=== PATIENT | female | born 1935 | race Caucasian/White ===

== ENCOUNTER 2020-02-26 22:34 | Emergency (ER) | payer MEDICARE, OTHER, SELFPAY ==
[2020-02-26 22:40] VITALS: BP 149/66; PULSE 67; RESP 16; TEMP 36.3; O2SAT 99; BMI 16.9
--- NOTE | 2020-02-26 23:33 | CTR_ITS ---
PROCEDURE INFORMATION: Exam: CT Abdomen And Pelvis With Contrast Exam date and time: 02/26/2020 11:47 PM Age: 84 years old Clinical indication: Nausea; Abdominal pain; Localized; Right upper quadrant (ruq); Prior surgery; Surgery date: 6+ months; Additional info: Abd pain TECHNIQUE: Imaging protocol: Computed tomography of the abdomen and pelvis with intravenous contrast. Radiation optimization: All CT scans at this facility use at least one of these dose optimization techniques: automated exposure control; mA and/or kV adjustment per patient size (includes targeted exams where dose is matched to clinical indication); or iterative reconstruction. Contrast material: VISI; Contrast volume: 75 ml; Contrast route: INTRAVENOUS (IV); COMPARISON: No relevant prior studies available. RADIATION DOSE METRICS: Total DLP (mGy-cm): 446.71 FINDINGS: Liver: Normal. No mass. Gallbladder and bile ducts: Gallbladder appears somewhat prominent, ultrasound could further characterize this. Mild biliary dilation without obstructing lesion. Right hepatic lobe 11 mm cyst, no follow-up advised Pancreas: Normal. No ductal dilation. Spleen: Normal. No splenomegaly. Adrenals: Normal. No mass. Kidneys and ureters: Several benign left renal cysts, no follow-up advised. Stomach and bowel: Constipation. Prominent fluid in the stomach and portions of the small bowel may reflect a gastroenteritis. Appendix: No evidence of appendicitis. Intraperitoneal space: Unremarkable. No free air. No significant fluid collection. Vasculature: Unremarkable. No abdominal aortic aneurysm. Lymph nodes: Unremarkable. No enlarged lymph nodes. Bladder: Unremarkable as visualized. Reproductive: Unremarkable as visualized. Bones/joints: Several chronic appearing thoracic spine compression fractures. Soft tissues: Unremarkable. CT/CT abdomen pelvis w con* [id number] IMPRESSION: 1. Prominent fluid in the stomach and portions of the small bowel may reflect a gastroenteritis. 2. Gallbladder appears somewhat prominent, ultrasound could further characterize this. 3. Several benign left renal cysts, no follow-up advised. 4. Constipation. 5. Mild biliary dilation without obstructing lesion. 6.Right hepatic lobe 11 mm cyst, no follow-up advised Radiation Dose CTDIVOL = (mGy): DLP = 446.71 (mGy-cm)
[2020-02-26 23:36] VITALS: BP 167/85; PULSE 56; RESP 21; O2SAT 100
--- NOTE | 2020-02-26 23:37 | ED_ITS ---
HPI - Abdominal Pain General: Chief Complaint: Abdominal Pain Stated Complaint: abd pain Time Seen by Provider: 02/26/20 22:38 Source: patient Mode of arrival: ambulatory Limitations: no limitations History of Present Illness: HPI narrative: 84-year-old female had epigastric pain 4 hours ago starting after eating. States pain is been sharp in nature and is lessened slightly and is currently 6 out of 10. She had no nausea or vomiting she is had multiple abdominal surgeries in the past. MD elicited complaint: abdominal pain Pertinent past history: none Onset (ago): hour(s) Location: Epigastric Severity: moderate Quality: stabbing Radiation: none Migration to: no migration Associated Symptoms: Denies chills, dysuria and fever(s) Review of Systems Const: Denies: fever(s), chills, body aches or change in appetite Eyes: Denies: blurry vision or eye discomfort ENMT: Denies: throat pain or dental pain Card: Denies: chest pain Resp: Denies: dyspnea GI: Reports: abdominal pain : Denies: dysuria Musc: Denies: neck pain or back pain Skin/Breast: Denies: rash Neuro: Denies: headache(s) Psych: Denies: depression Artis/Lymph: Denies: easy bruising All/Imm: Denies: urticaria PFSH ED PFSH: Social History Smoking and tobacco status: never smoked Physical Exam Const: COMMON NORMALS: no acute distress, patient oriented x3 and healthy appearing HENMT: COMMON NORMALS: normocephalic and atraumatic HEAD & SCALP: normocephalic and atraumatic Eye: COMMON NORMALS: Equal, round and reactive pupils present and EOMs intact bilaterally PUPIL: Yes Equal, round and reactive pupils present Neck/C-Spine: COMMON NORMALS: full ROM and supple Chest: COMMONS NORMALS: normal inspection of the chest and normal palpation of entire chest wall Resp: COMMON NORMALS: normal respiratory effort, No retractions, No use of accessory muscles and clear to auscultation bilaterally AUSCULTATION: clear to auscultation bilaterally Cardio: COMMON NORMALS: regular rate, regular rhythm and No murmurs present (Cardio) RATE: regular rate RHYTHM: regular rhythm GI: COMMON NORMALS: Normal to inspection, nondistended, normoactive bowel sounds present, Soft to palpation and no masses PALPATION: Yes Soft to palpation OTHER: tenderness to epigastric region Extremity: COMMON NORMALS: normal to inspection and full ROM Neuro: COMMON NORMALS: patient oriented x3, moves all extremities and no focal motor deficits Psych: COMMON NORMALS: mental status grossly normal, Normal thought process present and cooperative THOUGHT PROCESS: Normal thought process present Skin: COMMON NORMALS: no rashes or lesions noted and no wounds GENERAL SKIN EXAM: no rashes or lesions noted Course Vital Signs: Vital signs: Vital Signs Temperature 97.4 F L 02/26/20 22:40 Pulse Rate 62 02/27/20 02:16 Respiratory Rate 18 02/27/20 02:16 Blood Pressure 139/77 02/27/20 02:16 Pulse Oximetry 98 02/27/20 02:16 MDM - Abdominal Pain MDM Narrative: Medical decision making narrative: 84-year-old female presents here with abdominal pain likely gastroenteritis. Patient's pain was mainly epigastric and lab work here is all normal. CT does show gastritis as well. We will place her on Zofran she is stable for discharge. She has no tenderness over her gallbladder but does have a prominent gallbladder on CT and will have her follow-up with surgeon. She has no signs of acute cholecystitis. She is return if worsening. Lab Data: Labs: Lab Results 02/26/20 02/26/20 Range/Units 23:26 23:26 WBC 5.0 (4.0-10.0) 10^3/ uL RBC 3.75 L (4.1-5.3) 10^6/u L Hgb 11.7 (11.5-15.3) g/dL Hct 35.4 L (37.0-47.0) % MCV 94.4 (81-99) fL MCH 31.2 (28.0-34.0) pg MCHC 33.1 (30.0-36.0) g/dL RDW 12.2 (12.1-15.1) % Plt Count 244 (130-400) 10^3/c mm MPV 9.5 (7.4-10.4) fL Neut % (Auto) 56.0 % Lymph % (Auto) 24.0 % Clayton % (Auto) 16.8 % Eos % (Auto) 2.0 % Baso % (Auto) 1.0 % Neut # (Auto) 2.8 (1.8-7.7) 10^3/u L Lymph # (Auto) 1.2 (0.8-4.8) 10^3/u L Clayton # (Auto) 0.8 (0.2-0.9) 10^3/u L Eos # (Auto) 0.1 (0.0-0.8) 10^3/u L Baso # (Auto) 0.1 (0.0-0.1) 10^3/u L Nucleated RBC % (a uto) 0 % Nucleated RBCs # 0.0 /100WBC Sodium 134 L (136-145) mmol/L Potassium 4.0 (3.5-5.1) mmol/L Chloride 96 L (98-107) mmol/L Carbon Dioxide 24 (22-29) mmol/L Anion Gap 18.0 (5-19) BUN 18 (8-23) mg/dL Creatinine 0.8 (0.5-0.9) mg/dL Glucose 149 H (65-115) mg/dL Calculated Osmolal ity 277 L (285-295) mOsm/k g Calcium 10.2 (8.5-10.5) mg/dL Total Bilirubin 0.3 (0.15-1.2) mg/dL AST 27 (0-32) U/L ALT 14 (0-33) U/L Alkaline Phosphata se 58 (35-105) IU/L Total Protein 7.2 (6.6-8.7) g/dL Albumin 4.4 (3.5-5.2) g/dL Globulin 2.8 (1.3-4.6) g/dL Lipase 92 H (13-60) U/L Imaging Data ^: CT Abd/Pel: Radiologist's impression: [address] [address] [address] Scan Report Signed Patient: Aniyah Knowles Unit #: [id number] : 1935 Age/Sex: 84 / F ADM Date: 02/26/20 Loc: ER Room/Bed: Attending Dr: Ordering Provider/Ordering MD: Charisse Flaherty MD Date of Service: 02/26/20 Procedure(s): CT abdomen pelvis w con* [id number] Accession Number(s): [id number] Report Number: [id number] PROCEDURE INFORMATION: Exam: CT Abdomen And Pelvis With Contrast Exam date and time: 02/26/2020 11:47 PM Age: 84 years old Clinical indication: Nausea; Abdominal pain; Localized; Right upper quadrant (ruq); Prior surgery; Surgery date: 6+ months; Additional info: Abd pain TECHNIQUE: Imaging protocol: Computed tomography of the abdomen and pelvis with intravenous contrast. Radiation optimization: All CT scans at this facility use at least one of these dose optimization techniques: automated exposure control; mA and/or kV adjustment per patient size (includes targeted exams where dose is matched to clinical indication); or iterative reconstruction. Contrast material: VISI; Contrast volume: 75 ml; Contrast route: INTRAVENOUS (IV); COMPARISON: No relevant prior studies available. RADIATION DOSE METRICS: Total DLP (mGy-cm): 446.71 FINDINGS: Liver: Normal. No mass. Gallbladder and bile ducts: Gallbladder appears somewhat prominent, ultrasound could further characterize this. Mild biliary dilation without obstructing lesion. Right hepatic lobe 11 mm cyst, no follow-up advised Pancreas: Normal. No ductal dilation. Spleen: Normal. No splenomegaly. Adrenals: Normal. No mass. Kidneys and ureters: Several benign left renal cysts, no follow-up advised. Stomach and bowel: Constipation. Prominent fluid in the stomach and portions of the small bowel may reflect a gastroenteritis. Appendix: No evidence of appendicitis. Intraperitoneal space: Unremarkable. No free air. No significant fluid collection. Vasculature: Unremarkable. No abdominal aortic aneurysm. Lymph nodes: Unremarkable. No enlarged lymph nodes. Bladder: Unremarkable as visualized. Reproductive: Unremarkable as visualized. Bones/joints: Several chronic appearing thoracic spine compression fractures. Soft tissues: Unremarkable. CT/CT abdomen pelvis w con* [id number] IMPRESSION: 1. Prominent fluid in the stomach and portions of the small bowel may reflect a gastroenteritis. 2. Gallbladder appears somewhat prominent, ultrasound could further characterize this. 3. Several benign left renal cysts, no follow-up advised. 4. Constipation. 5. Mild biliary dilation without obstructing lesion. 6.Right hepatic lobe 11 mm cyst, no follow-up advised EKG Data ^: EKG 1: Attestation: I personally reviewed and interpreted this EKG as follows: EKG interpretation date: 02/26/20 EKG interpretation time: 23:36 Interpretation: sinus christopher hr [address] or t wave abnormalities qrs 103 qtc 417 Discharge Plan Discharge Patient Disposition: Home, Self-Care Clinical Impression: Abdominal pain Qualifiers: Abdominal location: generalized Qualified Code(s): R10.84 - Generalized abdominal pain Condition: Stable Prescriptions: New ondansetron 4 mg tablet,disintegrating 4 mg PO Q6H PRN (Reason: nausea and vomiting) Qty: 14 RF: 0 No Action Effexor XR 35 mg RF: 0 Discharge Orders: Discharge Order (Routine); Ordered 02/27/20 Ordered By: Charisse Flaherty Referrals: Alin Frey MD [Physician] - 1-3 days Jonathon Rosa MD [Primary Care Provider] - Discharge Diet: Advance as tolerated Discharge Activity: Resume usual activity Patient Instructions: Abdominal Pain (ED) Discharge Date/Time: 02/27/20 02:18 Coding Level of Care Code ED [employer] Installer for Chg Fwd Exam Comprehensive
[2020-02-26 23:41] LABS: Basophils # 0.1 10^3/uL (0.0-0.1); Eosinophils # 0.1 10^3/uL (0.0-0.8); Hematocrit 35.4 % (37.0-47.0); Hemoglobin 11.7 g/dL (11.5-15.3); Lymphocytes # 1.2 10^3/uL (0.8-4.8); Mean Corpuscular HGB Conc 33.1 g/dL (30.0-36.0); Mean Corpuscular Hemoglobin 31.2 pg (28.0-34.0); Mean Corpuscular Volume 94.4 fL (81-99); Mean Platelet Volume 9.5 fL (7.4-10.4); Monocytes # 0.8 10^3/uL (0.2-0.9); Monocytes % 16.8 %; Neutrophils # 2.8 10^3/uL (1.8-7.7); Nucleated Red Blood Cells % 0 %; Platelet Count 244 10^3/cmm (130-400); Red Blood Count 3.75 10^6/uL (4.1-5.3); Red Cell Distribution Width 12.2 % (12.1-15.1)
[2020-02-26] MEDS: lidocaine 2% viscous 15 ML, aluminum-mag hydrox-simethicon 30 ML, sucralfate oral liq 1 GM PO (23:43)
[2020-02-27 00:15] VITALS: BP 156/87; PULSE 58; RESP 16; O2SAT 99
[2020-02-27 00:18] LABS: Alanine Aminotransferase 14 U/L (0-33); Albumin Level 4.4 g/dL (3.5-5.2); Alkaline Phosphatase 58 IU/L (35-105); Aspartate Amino Transferase 27 U/L (0-32); Blood Urea Nitrogen 18 mg/dL (8-23); Calcium 10.2 mg/dL (8.5-10.5); Carbon Dioxide 24 mmol/L (22-29); Chloride 96 mmol/L (98-107); Globulin 2.8 g/dL (1.3-4.6); Glucose 149 mg/dL (65-115); Lipase 92 U/L (13-60); Osmolality Calculated 277 mOsm/kg (285-295); Sodium 134 mmol/L (136-145); Total Bilirubin 0.3 mg/dL (0.15-1.2); Total Protein 7.2 g/dL (6.6-8.7)
[2020-02-27] MEDS: iodixanol 320 mg/mL 100mL Btl IV (00:34)
[2020-02-27] MEDS: ondansetron 2 mg/ML SDV 2 mL 4 MG IVP (00:56)
[2020-02-27] MEDS: morphine 4 mg/mL SDV 1 mL IVP (00:56)
[2020-02-27 01:32] VITALS: BP 139/71; PULSE 50; RESP 19; O2SAT 96
[2020-02-27 02:16] VITALS: BP 139/77; PULSE 62; RESP 18; O2SAT 98
--- NOTE | 2020-02-27 11:40 | DCPLANNER ---
employee relations manager had message to schedule a follow up appointment for patient with general surgery. employee relations manager called [facility], spoke with Janay, gave clinic patients information. employee relations manager was told that patients information would be printed and reviewed. Clinic will call patient with appointment information.
--- NOTE | 2020-02-27 13:46 | ECG_ITS ---
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 Measurements Intervals [place] Rate: 54 P: 75 MO: 192 QRS: 57 QRSD: 103 T: 61 QT: 432 QTc: 409 Interpretive Statements SINUS BRADYCARDIA Compared to ECG 05/04/2017 05:32:59 No significant changes Electronically Signed On 02-28-2020 0:05:48 CDT by Vicky Rios M.D. [id number]
--- NOTE | 2020-02-29 08:18 | DCPLANNER ---
Patient has a follow up appointment scheduled for Wednesday, March 04, [address] at 9:[address] Frey. Clinic will call patient with appointment information.
--- NOTE | 2020-03-06 14:52 | DCPLANNER ---
Patient did attend appointment scheduled for 03.04.20 with certified surgical tech/first assistant clinic.
== END 2020-02-27 02:18 | disposition home or self-care (01) ==
PROVIDERS: Emergency Provider Emergency Medicine; PCP Family Medicine
DX: R10.84 Generalized abdominal pain (principal)
CPT/HCPCS: 12345; 74177; 80053; 83690; 85025; 93005; 96374; 96375; 99283; J2270; J2405; Q9967

== ENCOUNTER 2020-07-18 15:33 | Outpatient (CLI) | payer MEDICARE, OTHER, SELFPAY ==
--- NOTE | 2020-07-18 15:50 | CT_ITS ---
WS: [id number] CT of the lumbar spine, additional two-dimensional coronal and sagittal imaging was obtained. 020 Clinical Data: COMPRESSION FX L3 Comparison: Lumbar spine, 07/01/2020. DLP: 1421.[address] scans at [facility] use at least one of these dose optimization techniques: automat ed exposure control; mA and/or kV adjustment per patient size (includes targeted exams where dose is matched to clinical indication); or iterative reconstruction. Findings: There is diffuse demineralization. There are compression fractures of the L1 vertebral body involving more than 50% of the central vertebral body height, L3 vertebral body with loss of more th an 50% of the vertebral body height and the L4 vertebral body with loss of 25-50% of the superior emma tebral body height. There is a subluxation of L4 on L5 of 0.4 cm. The transverse processes and SI weston nts are not remarkable. T12-L1: No canal stenosis, disc bulge or foraminal narrowing is seen. L1-L2: There is slight retropulsion of the posterior inferior L1 vertebral body causing mild canal st enosis. L2-L3: Is retropulsion of the posterior superior L3 vertebral body causing mild canal stenosis. L3-L4: There is retropulsion of the posterior inferior aspect of L3 and the posterior superior aspect of L4 causing mild canal stenosis. L4-L5: There is a broad-based disc bulge causing mild canal stenosis and facet joint arthritis causin g foraminal stenosis. L5-S1: No canal stenosis, disc bulge or foraminal narrowing is seen. CT/CT lumbar spine wo con* [id number] Impression: 1. Compression fractures of L1, L3 and L4. 2. Diffuse osteoporosis. 3. Multilevel mild canal stenosis. 4. Anterolisthesis of L4 on L5 of 0.4 cm
== END 2020-07-18 15:34 | disposition home or self-care (01) ==
LOC: RADWPI 15:40
PROVIDERS: PCP Family Medicine; Visit Provider Family Medicine
DX: S32.010A Wedge compression fracture of first lumbar vertebra, initial encounter for closed fracture (principal); S32.030A Wedge compression fracture of third lumbar vertebra, initial encounter for closed fracture; S32.040A Wedge compression fracture of fourth lumbar vertebra, initial encounter for closed fracture; X58.XXXA Exposure to other specified factors, initial encounter; M81.0 Age-related osteoporosis without current pathological fracture; M48.061 Spinal stenosis, lumbar region without neurogenic claudication
CPT/HCPCS: 72131

== ENCOUNTER 2020-07-20 14:55 | Emergency (ER) | payer MEDICARE, OTHER, SELFPAY ==
[2020-07-20 15:05] VITALS: BP 120/65; PULSE 88; RESP 18; TEMP 36.7; O2SAT 96; BMI 16.1
--- NOTE | 2020-07-20 15:37 | MRR_ITS ---
PROCEDURE INFORMATION: Exam: MR Lumbar Spine Without Contrast. Exam date and time: 07/20/2020 5:09 PM Age: 85 years old Clinical indication: Low back pain; Additional info: Fracrture and numbness to le TECHNIQUE: Imaging protocol: Multiplanar magnetic resonance images of the lumbar spine without intravenous contrast. COMPARISON: CT lumbar spine wo con* [id number] 07/18/2020 3:57 PM FINDINGS: Vertebrae: There is mild compression deformity of T9 with normal bone marrow signal. There is also acute appearing compression fractures of T11-L1 and L3 with associated bone marrow edema corresponding with fractures depicted upon CT scan of 07/18/2020. There is moderate compression deformity of the superior endplate of L4 but with normal marrow signal in the vertebrae indicating chronic compression fracture. Spinal cord: Tip of the conus is at the T12-L1 level and is unremarkable. L1-L2: Disc has normal height and there is no evidence of focal herniation or so seated central canal or foraminal narrowing. L2-L3: There is mild retropulsion of the superior aspect of the L3 vertebral body which effaces the anterior epidural space and indents the thecal sac. There is relative stenosis with the sagittal diameter canal narrowed to approximately 11 mm but there is no significant sagittal or foraminal narrowing. No focal disc herniation is demonstrated. L3-L4: There is diffuse posterior bulging of the disc and some mild posterior spurring or retropulsion from the superior endplate of L4 which indents the anterior thecal sac . There is relative stenosis narrowing the sagittal diameter of the canal to 10 mm but no significant sagittal or foraminal narrowing. L4-L5: There is moderate diffuse posterior bulging of the disc which effaces the anterior epidural space and indents the anterior thecal sac with mild relative central canal stenosis, the sagittal diameter measures slightly less than 10 mm. There is some hypertrophy of the ligamentum flavum bilaterally in there is mild narrowing of the neural foramina bilaterally. L5-S1: No significant disc disease. No significant spinal canal stenosis. No neural foraminal stenosis. Soft tissues: Unremarkable. MR/MR lumbar spine wo con* [id number] IMPRESSION: 1. Chronic compression fracture at L4. 2. Acute compression fractures at T11, L1, and L3. 3. Mild central canal stenosis at L4-L5 4. No acute disc herniation
[2020-07-20 15:39] VITALS: O2SAT 92
--- NOTE | 2020-07-20 15:40 | ED_ITS ---
Documented by User: Marilin De Santiago 07/20/20 16:52 HPI - Back Pain/Injury General: Chief Complaint: Back Pain/Injury Stated Complaint: BACK PAIN Time Seen by Provider: 07/20/20 15:12 Source: patient Mode of arrival: ambulatory Limitations: no limitations History of Present Illness: HPI Narrative: 85 yo female patient presents to ER states she hurt her back a few weeks ago throwing a horse blanket and pain has progressively worsened. Pt went to PCP and had ct done but is unaware of the resilts. Pain worsened today and pt developed some decrease sensation to her feet. Pt denies loss of bowel or bladder. Pt denies fever. Pt denies any other complaitns Associated symptoms: Deny abdominal pain, chills, dysuria, fever(s), hematuria, nausea, syncope, urinary urgency or vomiting Review of Systems Const: Denies: fever(s) or chills Eyes: Denies: change in vision or blurry vision Card: Denies: chest pain, palpitations, irregular heart rhythm, lightheadedness or syncope Resp: Denies: dyspnea, productive cough, non-productive cough, wheezing or pain on inspiration GI: Denies: abdominal pain, nausea, vomiting or diarrhea : Denies: flank pain, difficulty voiding, dysuria, urinary frequency, urinary urgency, urinary hesitancy, dribbling or hematuria Musc: Reports: back pain (l1-l4) Skin/Breast: Denies: rash Neuro: Reports: numbness in extremities (decreased sesnation to bilateral feet); Denies: headache(s) Psych: Denies: anxiety, suicidal ideation or homicidal ideation [facility] ED PFSH: Medical History (Updated 07/20/20 @ 19:08 by KWAME Montesinos) Depression Surgical History History of breast biopsy History of colon resection (~2018) History of hysterectomy Family History Denies family history of Anesthesia complication Bleeding disorder Social History Smoking and tobacco status: never smoked Second hand smoke exposure: No Alcohol intake: never Adopted: No Caregiver/support person: Yes Lives independently: Yes Household members: family Housing: House Marital status: / service: No Current occupational status: retired Current occupational exposures/hazards: No Pets and animals: No History of recent travel: No Sexually active: No Current gender identity: Female Chely/Gnosticist: Mandaen Special chely needs: No Financial difficulty paying for basics: Decline to Answer Physical Exam Const: COMMON NORMALS: no acute distress, patient oriented x3 and no limitations GENERAL APPEARANCE: cooperative HENMT: COMMON NORMALS: normocephalic and atraumatic HEAD & SCALP: normocephalic and atraumatic Eye: COMMON NORMALS: Equal, round and reactive pupils present and EOMs intact bilaterally PUPIL: Yes Equal, round and reactive pupils present Neck/C-Spine: COMMON NORMALS: full ROM, no lymphadenopathy, supple and no meningeal signs Chest: COMMONS NORMALS: normal inspection of the chest and normal palpation of entire chest wall Resp: COMMON NORMALS: normal respiratory effort, No retractions, No use of accessory muscles and clear to auscultation bilaterally AUSCULTATION: clear to auscultation bilaterally Cardio: COMMON NORMALS: regular rate and regular rhythm RATE: regular rate RHYTHM: regular rhythm GI: COMMON NORMALS: Normal to inspection, nondistended, normoactive bowel sounds present, Soft to palpation and non-tender PALPATION: Yes Soft to palpation : COMMON NORMALS: Yes no CVA tenderness BLADDER/KIDNEY EXAM: Yes no CVA tenderness and No CVA tenderness Back/Pelvis: COMMON NORMALS: no CVA tenderness and thoracic and lumbar spine normal to inspection; negative for no thoracic nor lumbar tenderness and negative for thoraco-lumbar ROM normal GENERAL BACK: No CVA tenderness THORACIC SPINE/UPPER BACK: Yes normal to inspection, No thoracic ROM normal, Yes ROM limited, Yes pain with ROM and Yes thoracic spinal tenderness Extremity: COMMON NORMALS: normal to inspection, full ROM, capillary refill normal, no joint enlargement, no clubbing, cyanosis or edema, no calf tenderness and no pedal edema Neuro: COMMON NORMALS: patient oriented x3, CN's II-XII intact bilaterally and moves all extremities MENINGEAL SIGNS: Yes no meningeal signs Psych: COMMON NORMALS: mental status grossly normal, Normal thought process present, cooperative, normal affect, speech normal, activity/motor behavior normal, denies homicidal ideation and denies suicidal ideation SPEECH: Yes normal speech THOUGHT PROCESS: Normal thought process present Course ED course: Care transitioned at this time to Joey Bennett/ Mri pending at this time. Vital Signs: Vital signs: Vital Signs Temperature 98.0 F 07/20/20 15:05 Pulse Rate 72 07/20/20 18:29 Respiratory Rate 18 07/20/20 15:05 Blood Pressure 112/69 07/20/20 16:08 Pulse Oximetry 94 07/20/20 18:29 MDM - Back Pain/Injury MDM Narrative: Medical decision making narrative: Spoke with Dr. Patel ortho medical staff specialist who recommended MRI Lab Data: Labs: Lab Results 07/20/20 Range/Units 18:03 Urine Color Yellow (Yellow) Urine Appearance Hazy A (CLEAR) Urine pH 5 (5-7) Ur Specific Gravit y 1.020 (1.005-1.030) Urine Protein Neg (Negative) Urine Glucose (UA) Norm (Normal) Urine Ketones Negative (Negative) Urine Blood 2+ H (Negative) Urine Nitrate Positive H (Negative) Urine Bilirubin Neg (Negative) Urine Urobilinogen Norm (Negative) mg/dL Ur Leukocyte Connie ase 1+ H (Negative) Urine RBC 5-10 H (0-2) /hpf Urine WBC 10-15 H (0-5) /hpf Ur Squamous Epith Cells 25-40 H (0-5) /hpf Amorphous Sediment Not Reportable Urine Bacteria 4+ H (NONE) /hpf Discharge Plan Discharge Patient Disposition: Home Clinical Impression: Closed compression fracture of body of first lumbar vertebra, Acute UTI Prescriptions: New hydrocodone-acetaminophen 5-325 mg tablet 1 tab PO Q6H PRN (Reason: pain) Qty: 20 RF: 0 Macrobid 100 mg capsule 100 mg PO BID 7 Days Qty: 14 RF: 0 No Action Effexor XR 37.5 mg PO DAILY RF: 0 Advil 200 mg Tablet 200 - 400 mg PO Q6H PRN (Reason: Pain) RF: 0 Multi Vitamin 9 mg iron/15 mL Liquid 1 ml PO DAILY RF: 0 Discharge Orders: Discharge Order (Routine); Ordered 07/20/20 Ordered By: Tre Bennett Referrals: Jonathon Rosa MD [Primary Care Provider] - Discharge Diet: Usual diet Discharge Activity: Increase activity as tolerated Patient Instructions: Vertebral Compression Fracture (ED) Activity Restrictions/Additional Instructions: Activity as tolerated. Use walker for ambulation. Take medications as directed for pain. Use Advil for further pain relief. Drink plenty of water with medication. Follow-up with Dr. Rosa for further treatment. Follow-up with orthopedic surgeon for further consideration of treatment. Return to the emergency department for new concerns or persistent discomfort. Coding Level of Care Code ED Ferryboat Ticket Taker for Chg Fwd Exam Comprehensive Documented by User: KWAME Montesinos 07/20/20 19:27 HPI - Back Pain/Injury General: Chief Complaint: Back Pain/Injury Stated Complaint: BACK PAIN Time Seen by Provider: 07/20/20 15:12 PFSH ED PFSH: Medical History (Updated 07/20/20 @ 19:08 by KWAME Montesinos) Depression Surgical History History of breast biopsy History of colon resection (~2017) History of hysterectomy Family History Denies family history of Anesthesia complication Bleeding disorder Social History Smoking and tobacco status: never smoked Second hand smoke exposure: No Alcohol intake: never Adopted: No Caregiver/support person: Yes Lives independently: Yes Household members: family Housing: House Marital status: / service: No Current occupational status: retired Current occupational exposures/hazards: No Pets and animals: No History of recent travel: No Sexually active: No Current gender identity: Female Chely/Gnosticist: Mandaen Special chely needs: No Financial difficulty paying for basics: Decline to Answer Course ED course: 1700, received patient from ROSALIA Block. awaiting MRI result. plan to Dc if results notes not significant spinal cord compromise.[email or web address] Vital Signs: Vital signs: Vital Signs Temperature 98.0 F 07/20/20 15:05 Pulse Rate 72 07/20/20 18:29 Respiratory Rate 18 07/20/20 15:05 Blood Pressure 112/69 07/20/20 16:08 Pulse Oximetry 94 07/20/20 18:29 MDM - Back Pain/Injury MDM Narrative: Medical decision making narrative: Patient came in today for concerns of persistent back pain for the last 2 months. Patient had a CT scan which did not indicate a new fracture. Prior clinician had order the MRI and we were awaiting results. The results noted a new fracture at T11 and L1. No si gnificant compromise to the spinal column was noted though. Patient was able ambulate after medication for pain. Urinalysis did show nitrates and white blood cells in the urine. We treated for infection of the urine with Macrobid twice a day for 7 days. Patient was given some hydrocodone for pain. Recommended follow-up with primary care or orthopedic medical staff specialist for further treatment. Patient and family member reported understanding. Lab Data: Labs: Lab Results 07/20/20 Range/Units 18:03 Urine Color Yellow (Yellow) Urine Appearance Hazy A (CLEAR) Urine pH 5 (5-7) Ur Specific Gravit y 1.020 (1.005-1.030) Urine Protein Neg (Negative) Urine Glucose (UA) Norm (Normal) Urine Ketones Negative (Negative) Urine Blood 2+ H (Negative) Urine Nitrate Positive H (Negative) Urine Bilirubin Neg (Negative) Urine Urobilinogen Norm (Negative) mg/dL Ur Leukocyte Connie ase 1+ H (Negative) Urine RBC 5-10 H (0-2) /hpf Urine WBC 10-15 H (0-5) /hpf Ur Squamous Epith Cells 25-40 H (0-5) /hpf Amorphous Sediment Not Reportable Urine Bacteria 4+ H (NONE) /hpf Discharge Plan Discharge Patient Disposition: Home Clinical Impression: Closed compression fracture of body of first lumbar vertebra, Acute UTI Prescriptions: New hydrocodone-acetaminophen 5-325 mg tablet 1 tab PO Q6H PRN (Reason: pain) Qty: 20 RF: 0 Macrobid 100 mg capsule 100 mg PO BID 7 Days Qty: 14 RF: 0 No Action Effexor XR 37.5 mg PO DAILY RF: 0 Advil 200 mg Tablet 200 - 400 mg PO Q6H PRN (Reason: Pain) RF: 0 Multi Vitamin 9 mg iron/15 mL Liquid 1 ml PO DAILY RF: 0 Discharge Orders: Discharge Order (Routine); Ordered 07/20/20 Ordered By: Tre Bennett Referrals: Jonathon Rosa MD [Primary Care Provider] - Discharge Diet: Usual diet Discharge Activity: Increase activity as tolerated Patient Instructions: Vertebral Compression Fracture (ED) Activity Restrictions/Additional Instructions: Activity as tolerated. Use walker for ambulation. Take medications as directed for pain. Use Advil for further pain relief. Drink plenty of water with medication. Follow-up with Dr. Rosa for further treatment. Follow-up with orthopedic surgeon for further consideration of treatment. Return to the emergency department for new concerns or persistent discomfort. Coding Level of Care Code ED Ferryboat Ticket Taker for Chg Fwd Exam Comprehensive
[2020-07-20] MEDS: HYDROcodone-acetaminophen 5-325 mg Tablet 1 TAB PO (16:05)
[2020-07-20 16:08] VITALS: BP 112/69; PULSE 88; O2SAT 93
--- NOTE | 2020-07-20 17:24 | PC.NURSE ---
pt to [facility] for MRI
--- NOTE | 2020-07-20 17:48 | PC.NURSE ---
PT BACK FROM [place]
[2020-07-20 18:29] VITALS: PULSE 72; O2SAT 94
[2020-07-20 18:44] LABS: Urine Appearance Hazy (CLEAR); Urine Color Yellow (Yellow); pH Urine 5 (5-7)
[2020-07-20 18:45] LABS: Add Urine Microscopic? YES; Bilirubin Urine Neg (Negative); Blood Urine 2+ (Negative); Glucose Urine UA Norm (Normal); Ketones Urine Negative (Negative); Leukocyte Esterase Urine 1+ (Negative); Nitrate Urine Positive (Negative); Protein Urine Neg (Negative); Urobilinogen Urine Norm (Negative)
[2020-07-20 18:59] LABS: Add Urine Culture? No; Bacteria Urine 4+ /hpf; Squamous Epithelial Cell Urine 25-40 /hpf (0-5)
[2020-07-20 19:28] VITALS: BP 123/86; PULSE 79; RESP 16; O2SAT 99
--- NOTE | 2020-07-22 11:03 | DCPLANNER ---
manager specialty had message to schedule a follow up appointment for patient with ortho. manager specialty called the ortho clinic, spoke with Opal, gave clinic patients information. manager specialty was told that patients information would be printed and reviewed. Clinic will call patient with appointment information.
--- NOTE | 2020-07-23 08:19 | DCPLANNER ---
Patient has a follow up appointment scheduled for Thursday, July 23, 2020 at 11:30 with Bryanna Joseph. Clinic will call patient with appointment information.
--- NOTE | 2020-08-20 14:43 | DCPLANNER ---
Patient had a follow up appointment scheduled with ortho - patient did attend appointment.
== END 2020-07-20 19:29 | disposition home or self-care (01) ==
PROVIDERS: Registered Nurse; Emergency Provider Nurse Practitioner Family; PCP Family Medicine
DX: S32.040A Wedge compression fracture of fourth lumbar vertebra, initial encounter for closed fracture (principal); S32.010A Wedge compression fracture of first lumbar vertebra, initial encounter for closed fracture; S32.030A Wedge compression fracture of third lumbar vertebra, initial encounter for closed fracture; N39.0 Urinary tract infection, site not specified; X50.9XXA Other and unspecified overexertion or strenuous movements or postures, initial encounter
CPT/HCPCS: 12345; 72148; 81001; 99281; 99283

== ENCOUNTER → 2020-08-29 11:08 | Outpatient (BNVA) | payer MEDICARE, OTHER, SELFPAY | PROVIDERS: PCP Family Medicine; Visit Provider Orthopaedic Surgery | DX: M54.9 Dorsalgia, unspecified (principal) | CPT/HCPCS: 72114 ==

== ENCOUNTER 2020-09-05 13:50 | Emergency (ER) | payer MEDICARE, OTHER, SELFPAY ==
[2020-09-05 13:58] VITALS: BP 145/84; PULSE 72; RESP 16; TEMP 36.6; O2SAT 98; BMI 16.6
[2020-09-05 14:02] VITALS: BP 128/80; PULSE 66; RESP 14; TEMP 36.5; O2SAT 96
--- NOTE | 2020-09-05 14:09 | ED_ITS ---
HPI - Back Pain/Injury General: Chief Complaint: Back Pain/Injury Stated Complaint: BACK PAIN Time Seen by Provider: 09/05/20 14:08 History of Present Illness: HPI Narrative: Pt is a 85y/o female who comes to the ED with Chronic back pain. She is currently being seen and treated by Dr. Joseph for lumbar spinal compression fractures. She was last seen by Dr. Joseph on Xray of lumbar spine showed stable lumbar fractures and he told her to continue wearing the back brace and follow up him at clinic in 5 weeks. She denies any acute injury or accident since last seen by dr. Joseph. Pt's daughter is present. Her main complaint is pain. Associated symptoms: Deny abdominal pain, chills, dysuria, fatigue, fever(s), hematuria, nausea or vomiting Review of Systems Const: Denies: fever(s), chills or fatigue Eyes: Denies: change in vision or eye discomfort ENMT: Denies: throat pain, odynophagia, nasal discharge or nasal congestion Card: Denies: chest pain, palpitations, edema, swelling of feet/ankles, dyspnea on exertion or orthopnea Resp: Denies: dyspnea, productive cough or non-productive cough GI: Denies: abdominal pain, nausea, vomiting, diarrhea, constipation or hematochezia : Denies: flank pain, dysuria or hematuria Musc: Reports: back pain; Denies: neck pain or extremity swelling Skin/Breast: Denies: rash or new lesions Neuro: Denies: headache(s), numbness in extremities or weakness in extremities PFS ED PFSH: Medical History Depression Surgical History History of breast biopsy History of colon resection (~2018) History of hysterectomy Family History Denies family history of Anesthesia complication Bleeding disorder Social History Smoking and tobacco status: never smoked Second hand smoke exposure: No Alcohol intake: never Adopted: No Caregiver/support person: Yes Lives independently: Yes Household members: family Housing: House Marital status: / service: No Current occupational status: retired Current occupational exposures/hazards: No Pets and animals: No History of recent travel: No Sexually active: No Current gender identity: Female Chely/Episcopal: Baptist Special chely needs: No Financial difficulty paying for basics: Decline to Answer Physical Exam Const: COMMON NORMALS: no acute distress, patient oriented x3 and alert GENERAL APPEARANCE: cooperative and comfortable HENMT: COMMON NORMALS: normocephalic HEAD & SCALP: normocephalic MOUTH: Normal oral and palatal mucosa present THROAT: posterior oropharynx normal and uvula midline Neck/C-Spine: COMMON NORMALS: supple GENERAL: Yes normal visual inspection Resp: COMMON NORMALS: normal respiratory effort, No retractions, No use of accessory muscles and clear to auscultation bilaterally AUSCULTATION: clear to auscultation bilaterally Cardio: COMMON NORMALS: regular rate, regular rhythm, S1 normal heart sound present, S2 normal heart sound present, No gallops present (Cardio), No clicks present (Cardio), No murmurs present (Cardio) and Peripheral pulses 2+ throughout RATE: regular rate RHYTHM: regular rhythm HEART SOUNDS: S1 normal heart sound present and S2 normal heart sound present PERIPHERAL PULSES: Peripheral pulses 2+ throughout GI: COMMON NORMALS: Normal to inspection, nondistended, normoactive bowel sounds present, Soft to palpation, non-tender and no masses PALPATION: Yes Soft to palpation : COMMON NORMALS: Yes no CVA tenderness BLADDER/KIDNEY EXAM: Yes no CVA tenderness Back/Pelvis: COMMON NORMALS: no CVA tenderness OTHER: Pt is wearing a back brace while here in the ED. Extremity: COMMON NORMALS: normal to inspection Neuro: COMMON NORMALS: patient oriented x3 and moves all extremities SENSORIUM/ORIENTATION: Yes alert Skin: GENERAL SKIN EXAM: dry skin Course Vital Signs: Vital signs: Vital Signs Temperature 97.7 F 09/05/20 14:02 Pulse Rate 72 09/05/20 14:19 Respiratory Rate 14 09/05/20 14:19 Blood Pressure 126/74 09/05/20 14:19 Pulse Oximetry 95 09/05/20 14:19 MDM - Back Pain/Injury MDM Narrative: Medical decision making narrative: pt is an 85y/o female who comes to the ED with chronic back pain. She has no other complaints and is currently being treated and followed by Dr. Joseph. pt had xray of lumbar spine on and compression fractures were stable. denies any injury since then. exam was unremarkable and pt is wearing her back brace as instructed. Pt was given a prescription for norco 5/325mg tabs and told to follow up with Dr. Joseph at next scheduled appointment in 5 weeks. I told pt to call Dr. Joseph office to discuss possible physical therapy options. pt understood and agreed with plan. Discharge Plan Discharge Patient Disposition: Home Clinical Impression: Compression fracture of lumbar spine, non-traumatic Qualifiers: Encounter type: subsequent encounter Lumbar vertebra fracture level: L4 Fracture healing: with routine healing Qualified Code(s): M48.56XD - Collapsed vertebra, not elsewhere classified, lumbar region, subsequent encounter for fracture with routine healing Condition: Stable Prescriptions: No Action (DME) LUMBAR CORSET See Rx Instructions .Route .MEDSUPPLY Qty: 1 RF: 0 Effexor XR 37.5 mg PO DAILY RF: 0 Advil 200 mg Tablet 200 - 400 mg PO Q6H PRN (Reason: Pain) RF: 0 Multi Vitamin 9 mg iron/15 mL Liquid 1 ml PO DAILY RF: 0 hydrocodone-acetaminophen 5-325 mg tablet 1 tab PO Q6H PRN (Reason: pain) Qty: 20 RF: 0 Discharge Orders: Discharge ED (Routine); Ordered 09/05/20 Ordered By: Romaine Bailey Referrals: Jonathon Rosa MD [Primary Care Provider] - Discharge Diet: Regular Discharge Activity: Limit activity as instructed Activity Restrictions/Additional Instructions: Follow-up with medical provider as directed. Contact Dr. Joseph to discuss possible physical therapy options. Take medications as prescribed. Return to the ER or your medical provider if condition worsens. Please read and understand discharge instructions. If any questions, please ask. Coding Level of Care Code ED Special Order Jeweler for Jared Fwd Exam Comprehensive
[2020-09-05 14:19] VITALS: BP 126/74; PULSE 72; RESP 14; O2SAT 95
[2020-09-05] MEDS: HYDROcodone-acetaminophen 5-325 mg Tablet 1 TAB PO (15:06)
--- NOTE | 2020-09-05 15:16 | PC.NURSE ---
Read and agree with assessment.
== END 2020-09-05 15:10 | disposition home or self-care (01) ==
PROVIDERS: Emergency Provider Physician Assistant; PCP Family Medicine
DX: M48.56XA Collapsed vertebra, not elsewhere classified, lumbar region, initial encounter for fracture (principal); X58.XXXA Exposure to other specified factors, initial encounter
CPT/HCPCS: 12345; 99281; 99282

== ENCOUNTER 2020-09-07 11:27 | Emergency (ER) | payer MEDICARE, OTHER, SELFPAY ==
[2020-09-07 11:31] VITALS: BP 119/65; PULSE 69; RESP 16; TEMP 36.5; O2SAT 96; BMI 18.1
--- NOTE | 2020-09-07 12:39 | XRR_ITS ---
PROCEDURE INFORMATION: Exam: XR Lumbosacral Spine, 2 or 3 Views Exam date and time: 09/07/2020 1:16 PM Age: 85 years old Clinical indication: Injury or trauma; Fall; Blunt trauma (contusions or hematomas); Additional info: Fall, back pain TECHNIQUE: Imaging protocol: XR of the lumbosacral spine, 2 or 3 views. COMPARISON: 1. CR (PELVIS, ) 08/29/2020 11:15 AM 2. MR lumbar spine wo con* [id number] 07/20/2020 5:10:14 PM FINDINGS: Bones/joints: There is a compression fracture of the L1 vertebral body with moderate loss of vertebral height. This appears similar to the MR scan from 07/20/2020. There also stable compression fractures of T8, T9, T10, T11, and the superior endplates L3 and L4. Stable grade 1 anterolisthesis at L4-L5. Chronic degenerative changes are present predominantly in the facet joints. Bones are demineralized. Soft tissues: Unremarkable. XR/XR lumbar spine 2-3V* [id number] IMPRESSION: Stable old compression fractures.
--- NOTE | 2020-09-07 12:39 | XRR_ITS ---
PROCEDURE INFORMATION: Exam: XR Thoracic Spine, 3 Views Exam date and time: 09/07/2020 1:16 PM Age: 85 years old Clinical indication: Injury or trauma; Fall; Blunt trauma (contusions or hematomas); Additional info: Fall, back pain TECHNIQUE: Imaging protocol: XR of the thoracic spine, 3 views. COMPARISON: MR lumbar spine wo con* [id number] 07/20/2020 5:10:14 PM FINDINGS: Bones/joints: There are stable multiple compression fractures from T6 through T11 greatest at T11 with anterior wedging. Bones are demineralized. Soft tissues: Unremarkable. Heart/Mediastinum: There is prominent calcification overlying mediastinum suspected to be calcified lymph node(s). XR/XR thoracic spine 3V* [id number] IMPRESSION: Stable thoracic compression deformities.
--- NOTE | 2020-09-07 13:03 | CTR_ITS ---
PROCEDURE INFORMATION: Exam: CT Head Without Contrast Exam date and time: 09/07/2020 1:26 PM Age: 85 years old Clinical indication: Injury or trauma; Blunt trauma (contusions or hematomas); Without loss of consciousness; Patient HX: Multiple recent falls denies loc; Additional info: Fall, hit head on cabinet TECHNIQUE: Imaging protocol: Computed tomography of the head without contrast. Radiation optimization: All CT scans at this facility use at least one of these dose optimization techniques: automated exposure control; mA and/or kV adjustment per patient size (includes targeted exams where dose is matched to clinical indication); or iterative reconstruction. COMPARISON: No relevant prior studies available. RADIATION DOSE METRICS: Total DLP (mGy-cm): 703.56 FINDINGS: Brain: There is no acute intracranial hemorrhage. There is lucency in the cerebral white matter, likely microvascular disease although non-specific. Montejo white differentiation is intact. There are no extra-axial fluid collections. No evidence of mass. There is no mass effect or midline shift. Cerebral ventricles: The ventricles and sulci are enlarged, consistent with volume loss / atrophy. No hydrocephalus. Bones/joints: No acute fracture. Degenerative changes are noted at temporomandibular joints. Paranasal sinuses: Visualized sinuses are unremarkable. No fluid levels. Mastoid air cells: No significant mastoid effusion. Orbital cavity: There have been bilateral intraocular lens replacements likely related to cataract surgery. Vasculature: There is vascular calcification. Soft tissues: Unremarkable as visualized. CT/CT head wo con* [id number] IMPRESSION: 1. No evidence of acute intracranial abnormality. No evidence of acute infarction, hemorrhage, or mass. 2. Atrophy and microvascular disease. Radiation Dose CTDIVOL = (mGy): DLP = 703.56 (mGy-cm)
[2020-09-07] MEDS: HYDROcodone-acetaminophen 5-325 mg Tablet 1 TAB PO (13:12)
--- NOTE | 2020-09-07 13:20 | ECG_ITS ---
[facility] Test Date: 2020-09-07 Pat Name: Aniyah Knowles Department: Room: Gender: Female Sales Officer: : 1935 Requested By: Margaret Silva Order Number: [id number] Karin MD: Dedrick Ellis M.D. Measurements Intervals [place] Rate: 59 P: 59 CT: 189 QRS: 50 QRSD: 90 T: 52 QT: 418 QTc: 415 Interpretive Statements SINUS BRADYCARDIA Compared to ECG 02/26/2020 23:36:35 No significant changes Electronically Signed On 09-07-2020 17:54:29 PRESCHOOL EDUCATION DIRECTOR by Dedrick Ellis M.D. [email or web address]
--- NOTE | 2020-09-07 13:22 | ED_ITS ---
HPI - Back Pain/Injury General: Chief Complaint: Back Pain/Injury Stated Complaint: BACK PAIN S/P FALL Time Seen by Provider: 09/07/20 12:51 Source: patient and EMS Mode of arrival: EMS Limitations: no limitations History of Present Illness: HPI Narrative: 85-year-old female patient presents to the emergency department via EMS. She reports was room in her home without the use of her walker when she became dizzy and weak, felt she was going to pass out and just went down. She denies previous history of dizzy spells. States hit her head on a cabinet in her home, she denies headache upon exam and states does not take blood thinners. She is complaining of low back pain, history of compression fractures. She reports was not able to get up off the floor, called her family for assistance who then called 911 for help. She was transported here to the hospital via EMS. MD elicited complaint: back pain and back injury Pertinent past history: prior back pain Onset (ago): hour(s) (3-4) Timing: constant and progressively worsening Severity: moderate Quality: sharp, dull and aching Location: lumbar spine Radiation: none Exacerbating factors: movement Relieving factors: immobilization Context: fall Associated symptoms: Reports difficulty walking, fatigue and weakness; Deny abdominal pain, chills, dysuria, fever(s), nausea or vomiting Work related injury: No Review of Systems General: Reports: 10 or more systems reviewed and unremarkable except in HPI and below Const: Reports: fatigue and malaise; Denies: fever(s), chills or diaphoresis Eyes: Denies: blurry vision, eye discomfort or eye redness ENMT: Reports: disequilibrium; Denies: throat pain, dental pain, nasal discharge or nasal congestion Card: Denies: chest pain, palpitations or irregular heart rhythm Resp: Denies: dyspnea, productive cough, non-productive cough, wheezing or chest congestion GI: Denies: abdominal pain, nausea, vomiting, diarrhea, constipation or GI cramping : Denies: difficulty voiding or dysuria Musc: Reports: back pain, joint stiffness (chronic) and muscle weakness; Denies: neck pain, joint pain or limited range of motion Skin/Breast: Denies: rash or pruritus Neuro: Reports: difficulty walking, dizziness and difficulty communicating thoughts; Denies: numbness in extremities, sensory changes, confusion or Slurred speech present Psych: Denies: anxiety or depression Artis/Lymph: Denies: easy bruising PFSH ED PFSH: Medical History (Updated 09/07/20 @ 17:14 by CAROLIN Mckeon) Depression Surgical History History of breast biopsy History of colon resection (~2018) History of hysterectomy Family History Denies family history of Anesthesia complication Bleeding disorder Social History Smoking and tobacco status: never smoked Second hand smoke exposure: No Alcohol intake: never Adopted: No Caregiver/support person: Yes Lives independently: Yes Household members: family Housing: House Marital status: / service: No Current occupational status: retired Current occupational exposures/hazards: No Pets and animals: No History of recent travel: No Sexually active: No Current gender identity: Female Chely/Religious: Mandaeism Special chely needs: No Financial difficulty paying for basics: Decline to Answer Physical Exam Const: COMMON NORMALS: no acute distress, patient oriented x3, healthy appearing, alert and well nourished EXAM LIMITATIONS: physical limitations (frail); no altered mental status GENERAL APPEARANCE: cooperative, comfortable, well kempt, well developed, frail appearing and well hydrated; not ill appearing NUTRITIONAL APPEARANCE: thin ORIENTATION/CONSCIOUSNESS: Yes awake, Yes oriented to person, Yes oriented to place and Yes oriented to time HENMT: COMMON NORMALS: normocephalic, atraumatic, EAC's normal, TM's normal bilaterally, Normal external nose present, Normal nasal mucous membranes and turbinates present and moist oral mucous membranes HEAD & SCALP: normocephalic, atraumatic and scalp tenderness (right and left frontal head); no Acrocyanosis present and no Temporal artery tenderness present FACE & SINUS: normal facial exam and face symmetric; no erythema, no edema and no Acrocyanosis present NOSE: Normal external nose present and Normal nasal mucous membranes and turbinates present EXTERNAL AUDITORY CANAL: EAC's normal TYMPANIC MEMBRANE: TM's normal bilaterally MOUTH: Normal oral and palatal mucosa present and tongue normal THROAT: posterior oropharynx normal and uvula midline Eye: COMMON NORMALS: Equal, round and reactive pupils present and EOMs intact bilaterally GENERAL EYE: appearance normal, both eyes and all related structures PUPIL: Yes Equal, round and reactive pupils present Neck/C-Spine: COMMON NORMALS: full ROM, no lymphadenopathy and supple GENERAL: Yes normal visual inspection and Yes trachea midline CERVICAL SPINE: Yes cervical ROM normal, No pain with cervical ROM, No Cervical spine tenderness, No Paracervical muscle tenderness, No Paracervical spasm and No Trapezius muscle tenderness Lymph: LYMPHATIC: no lymphadenopathy noted Chest: COMMONS NORMALS: normal inspection of the chest and normal palpation of entire chest wall Resp: COMMON NORMALS: normal respiratory effort, No retractions, No use of accessory muscles and clear to auscultation bilaterally EFFORT & INSPECTION: Yes able to speak in complete sentences, No labored and No audible wheezes AUSCULTATION: clear to auscultation bilaterally, no wheezes and lung sounds not diminished Cardio: COMMON NORMALS: regular rate, regular rhythm, S1 normal heart sound present, S2 normal heart sound present and Peripheral pulses 2+ throughout RATE: regular rate RHYTHM: regular rhythm HEART SOUNDS: S1 normal heart sound present and S2 normal heart sound present PERIPHERAL PULSES: Peripheral pulses 2+ throughout GI: COMMON NORMALS: Normal to inspection, nondistended, normoactive bowel sounds present, Soft to palpation and non-tender INSPECTION: Yes normal to inspection PALPATION: Yes Soft to palpation : COMMON NORMALS: Yes no CVA tenderness BLADDER/KIDNEY EXAM: Yes no CVA tenderness and Yes CVA tenderness Back/Pelvis: COMMON NORMALS: no CVA tenderness and thoracic and lumbar spine normal to inspection GENERAL BACK: Yes CVA tenderness THORACIC SPINE/UPPER BACK: Yes ROM limited (Kyphosis), No thoracic spinal tenderness and No paraspinal muscle spasm LUMBAR SPINE/LOWER BACK: Yes ROM limited (Due to pain), Yes lumbar spinal tenderness Lumbar spinal tenderness location: L2, L3, L4 and L5, Yes paraspinal muscle tenderness, Yes straight leg raise positive left and Yes bend over test abnormal PELVIS: Yes buttocks normal SACROILIAC JOINTS: Yes SI joints normal Extremity: COMMON NORMALS: normal to inspection and capillary refill normal Neuro: TERESA COMA SCALE: document GCS findings Teresa coma scale eye opening: Spontaneous Glide coma scale verbal response: Orientated Teresa coma scale motor response: Obey commands Teresa coma scale total score: 15 COMMON NORMALS: patient oriented x3 and no focal motor deficits SENSORIUM/ORIENTATION: Yes alert, Yes oriented to person, Yes oriented to place and Yes oriented to time SPEECH: speech normal GAIT: Yes Unable to assess gait MOTOR EXAM: Pronator motor function not present and Abnormal motor strength present (4/5 all extremities) Right pupil size (mm): 4 Left pupil size (mm): 4 Psych: COMMON NORMALS: mental status grossly normal, Normal thought process present and cooperative APPEARANCE: Yes well kempt ACTIVITY/MOTOR BEHAVIOR: Yes appropriate eye contact THOUGHT PROCESS: Normal thought process present Skin: COMMON NORMALS: no rashes or lesions noted and turgor normal GENERAL SKIN EXAM: no rashes or lesions noted and turgor normal Course Vital Signs: Vital signs: Vital Signs Temperature 97.7 F 09/07/20 11:31 Pulse Rate 60 09/07/20 14:49 Respiratory Rate 16 09/07/20 11:31 Blood Pressure 149/70 09/07/20 14:49 Pulse Oximetry 96 09/07/20 11:31 MDM - Back Pain/Injury MDM Narrative: Medical decision making narrative: 85 year old female presents to the ED with fall s/p dizzy spell. Workup did not reveal acute abnormalities. EKG without ST changes, orthostatic vs without change, d-dimer normal with age variant. Case discussed with Dr. Edmond, no new orders or commendations. No no acute compression fractures were identified on thoracic or lumbar x-rays. CT of the head was normal without acute findings, urinalysis without leukoesterase or bacteria. She is wanting to go home and follow-up with Dr. Joseph, she remains with [facility] brace. Advised to return to the emergency department if she developed leg weakness or worsening symptoms. Verbalized understanding. Differential Diagnosis: Differential diagnosis back pain/injury: Likely lumbar radiculopathy Lab Data: Labs: Lab Results 09/07/20 09/07/20 09/07/20 Range/Units 13:20 13:20 13:20 WBC 5.9 (4.0-10.0) 10^3/ uL RBC 3.64 L (4.1-5.3) 10^6/u L Hgb 11.4 L (11.5-15.3) g/dL Hct 34.6 L (37.0-47.0) % MCV 95.1 (81-99) fL MCH 31.3 (28.0-34.0) pg MCHC 32.9 (30.0-36.0) g/dL RDW 14.5 (12.1-15.1) % Plt Count 305 (130-400) 10^3/c mm MPV 8.9 (7.4-10.4) fL Neut % (Auto) 76.7 % Lymph % (Auto) 12.7 % [place] % (Auto) 8.3 % Eos % (Auto) 1.2 % Baso % (Auto) 0.8 % Neut # (Auto) 4.53 (1.8-7.7) 10^3/u L Lymph # (Auto) 0.8 (0.8-4.8) 10^3/u L [place] # (Auto) 0.5 (0.2-0.9) 10^3/u L Eos # (Auto) 0.1 (0.0-0.8) 10^3/u L Baso # (Auto) 0.1 (0.0-0.1) 10^3/u L Nucleated RBC % (a uto) 0 % Nucleated RBCs # 0.0 /100WBC D-Dimer 6.41 H (0-0.59) ug/mIFE U Sodium 134 L (136-145) mmol/L Potassium 4.3 (3.5-5.1) mmol/L Chloride 98 (98-107) mmol/L Carbon Dioxide 27 (22-29) mmol/L Anion Gap 13.3 (5-19) BUN 23 (8-23) mg/dL Creatinine 0.8 (0.5-0.9) mg/dL GFR Calculation Not Reportable Glucose 132 H (65-115) mg/dL Calculated Osmolal ity 284 L (285-295) mOsm/k g Calcium 10.4 (8.5-10.5) mg/dL Total Bilirubin 0.3 (0.15-1.2) mg/dL AST 19 (0-32) U/L ALT 18 (0-33) U/L Alkaline Phosphata se 170 H (35-105) IU/L Troponin T Gen 5 n g/L (0-10) ng/L Total Protein 7.3 (6.6-8.7) g/dL Albumin 4.0 (3.5-5.2) g/dL Globulin 3.3 (1.3-4.6) g/dL Urine Color (Yellow) Urine Appearance (CLEAR) Urine pH (5-7) Ur Specific Gravit y (1.005-1.030) Urine Protein (Negative) Urine Glucose (UA) (Normal) Urine Ketones (Negative) Urine Blood (Negative) Urine Nitrate (Negative) Urine Bilirubin (Negative) Urine Urobilinogen (Negative) mg/dL Ur Leukocyte Connie ase (Negative) 09/07/20 09/07/20 Range/Units 13:20 14:02 WBC (4.0-10.0) 10^3/ uL RBC (4.1-5.3) 10^6/u L Hgb (11.5-15.3) g/dL Hct (37.0-47.0) % MCV (81-99) fL MCH (28.0-34.0) pg MCHC (30.0-36.0) g/dL RDW (12.1-15.1) % Plt Count (130-400) 10^3/c mm MPV (7.4-10.4) fL Neut % (Auto) % Lymph % (Auto) % [place] % (Auto) % Eos % (Auto) % Baso % (Auto) % Neut # (Auto) (1.8-7.7) 10^3/u L Lymph # (Auto) (0.8-4.8) 10^3/u L [place] # (Auto) (0.2-0.9) 10^3/u L Eos # (Auto) (0.0-0.8) 10^3/u L Baso # (Auto) (0.0-0.1) 10^3/u L Nucleated RBC % (a uto) % Nucleated RBCs # /100WBC D-Dimer (0-0.59) ug/mIFE U Sodium (136-145) mmol/L Potassium (3.5-5.1) mmol/L Chloride (98-107) mmol/L Carbon Dioxide (22-29) mmol/L Anion Gap (5-19) BUN (8-23) mg/dL Creatinine (0.5-0.9) mg/dL GFR Calculation Glucose (65-115) mg/dL Calculated Osmolal ity (285-295) mOsm/k g Calcium (8.5-10.5) mg/dL Total Bilirubin (0.15-1.2) mg/dL AST (0-32) U/L ALT (0-33) U/L Alkaline Phosphata se (35-105) IU/L Troponin T Gen 5 n g/L 8 (0-10) ng/L Total Protein (6.6-8.7) g/dL Albumin (3.5-5.2) g/dL Globulin (1.3-4.6) g/dL Urine Color Yellow (Yellow) Urine Appearance Clear (CLEAR) Urine pH 5 (5-7) Ur Specific Gravit y 1.025 (1.005-1.030) Urine Protein Neg (Negative) Urine Glucose (UA) Norm (Normal) Urine Ketones Negative (Negative) Urine Blood Neg (Negative) Urine Nitrate Negative (Negative) Urine Bilirubin Neg (Negative) Urine Urobilinogen Norm (Negative) mg/dL Ur Leukocyte Connie ase Negative (Negative) Imaging Data^: CT Head: Radiologist's impression: [address] [address] [address] Scan Report Signed Patient: Aniyah Knowles #: [id number] : 1935cct#:[id number] Age/Sex: 85 / FADM Date: 09/07/20 Loc: ERRoom/Bed: Attending Dr: Ordering Provider/Ordering MD: Margaret Sevilla Date of Service: 09/07/20 Procedure(s): CT head wo con* [id number] Accession Number(s): [id number] Report Number: [id number] PROCEDURE INFORMATION: Exam: CT Head Without Contrast Exam date and time: 09/07/2020 1:26 PM Age: 85 years old Clinical indication: Injury or trauma; Blunt trauma (contusions or hematomas); Without loss of consciousness; Patient HX: Multiple recent falls denies loc; Additional info: Fall, hit head on cabinet TECHNIQUE: Imaging protocol: Computed tomography of the head without contrast. Radiation optimization: All CT scans at this facility use at least one of these dose optimization techniques: automated exposure control; mA and/or kV adjustment per patient size (includes targeted exams where dose is matched to clinical indication); or iterative reconstruction. COMPARISON: No relevant prior studies available. RADIATION DOSE METRICS: Total DLP (mGy-cm): 703.56 FINDINGS: Brain: There is no acute intracranial hemorrhage. There is lucency in the cerebral white matter, likely microvascular disease although non-specific. [place] white differentiation is intact. There are no extra-axial fluid collections. No evidence of mass. There is no mass effect or midline shift. Cerebral ventricles: The ventricles and sulci are enlarged, consistent with volume loss / atrophy. No hydrocephalus. Bones/joints: No acute fracture. Degenerative changes are noted at temporomandibular joints. Paranasal sinuses: Visualized sinuses are unremarkable. No fluid levels. Mastoid air cells: No significant mastoid effusion. Orbital cavity: There have been bilateral intraocular lens replacements likely related to cataract surgery. Vasculature: There is vascular calcification. Soft tissues: Unremarkable as visualized. CT/CT head wo con* [id number] IMPRESSION: 1. No evidence of acute intracranial abnormality. No evidence of acute infarction, hemorrhage, or mass. 2. Atrophy and microvascular disease. Radiation Dose CTDIVOL = (mGy): DLP = 703.56 (mGy-cm) Dictated By:Katey Thornton MD Signed By:Katey Thornton MDSigned Date/Time:09/07/201418 DD/ 1417 Xray Ortho: Radiologist's impression: [address] [address] XRay Report Signed Patient: Aniyah Knowles Unit #: [id number] : 1935 Age/Sex: 85 / F ADM Date: 09/07/20 Loc: ER Room/Bed: Attending Dr: Ordering Provider/Ordering MD: Margaret Sevilla Date of Service: 09/07/20 Procedure(s): XR lumbar spine 2-3V* [id number] Accession Number(s): [id number] Report Number: [id number] PROCEDURE INFORMATION: Exam: XR Lumbosacral Spine, 2 or 3 Views Exam date and time: 09/07/2020 1:16 PM Age: 85 years old Clinical indication: Injury or trauma; Fall; Blunt trauma (contusions or hematomas); Additional info: Fall, back pain TECHNIQUE: Imaging protocol: XR of the lumbosacral spine, 2 or 3 views. COMPARISON: 1. CR (PELVIS, ) 08/29/2020 11:15 AM 2. MR lumbar spine wo con* [id number] 07/20/2020 5:10:14 PM FINDINGS: Bones/joints: There is a compression fracture of the L1 vertebral body with moderate loss of vertebral height. This appears similar to the MR scan from 07/20/2020. There also stable compression fractures of T8, T9, T10, T11, and the superior endplates L3 and L4. Stable grade 1 anterolisthesis at L4-L5. Chronic degenerative changes are present predominantly in the facet joints. Bones are demineralized. Soft tissues: Unremarkable. XR/XR lumbar spine 2-3V* [id number] IMPRESSION: Stable old compression fractures. Dictated By: Katey Thornton MD Signed By: Katey Thornton MD Signed Date/Time: 09/07/20 142 DD/ 1420 Other Xray: Radiologist's impression: [place] [address] XRay Report Signed Patient: Aniyah Knowles Unit #: [id number] : 1935 Age/Sex: 85 / F ADM Date: 09/07/20 Loc: ER Room/Bed: Attending Dr: Ordering Provider/Ordering MD: Margaret Sevilla Date of Service: 09/07/20 Procedure(s): XR thoracic spine 3V* [id number] Accession Number(s): [id number] Report Number: [id number] PROCEDURE INFORMATION: Exam: XR Thoracic Spine, 3 Views Exam date and time: 09/07/2020 1:16 PM Age: 85 years old Clinical indication: Injury or trauma; Fall; Blunt trauma (contusions or hematomas); Additional info: Fall, back pain TECHNIQUE: Imaging protocol: XR of the thoracic spine, 3 views. COMPARISON: MR lumbar spine wo con* [id number] 07/20/2020 5:10:14 PM FINDINGS: Bones/joints: There are stable multiple compression fractures from T6 through T11 greatest at T11 with anterior wedging. Bones are demineralized. Soft tissues: Unremarkable. Heart/Mediastinum: There is prominent calcification overlying mediastinum suspected to be calcified lymph node(s). XR/XR thoracic spine 3V* [id number] IMPRESSION: Stable thoracic compression deformities. Dictated By: Katey Thornton MD Signed By: Katey Thornton MD Signed Date/Time: 09/07/201422 DD/ 22 CXR: Radiologist's impression: [address] [address] XRay Report Signed Patient: Aniyah Knowles Unit #: [id number] : 1935 Age/Sex: 85 / F ADM Date: 09/07/20 Loc: ER Room/Bed: Attending Dr: Ordering Provider/Ordering MD: Margaret Sevilla Date of Service: 09/07/20 Procedure(s): XR chest 1V portable [id number] Accession Number(s): [id number] Report Number: [id number] PROCEDURE INFORMATION: Exam: XR Chest, 1 View Exam date and time: 09/07/2020 2:04 PM Age: 85 years old Clinical indication: Injury or trauma; Fall; Blunt trauma (contusions or hematomas); Additional info: Syncope TECHNIQUE: Imaging protocol: XR of the chest Views: 1 view. COMPARISON: [facility] Chest 2 views 05/11/2017 12:59 PM FINDINGS: Lungs: Hyperexpanded lungs. No focal consolidation. Minimal opacity likely scarring in bilateral lung bases. Inferolateral right calcified granuloma. Pleural space: No significant visible pleural effusion. No pneumothorax. 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 Vasculature: Aortic calcification. Bones/joints: Bones are demineralized. No acute osseous finding evident. XR/XR chest 1V portable [id number] IMPRESSION: Stable chest. Dictated By: Katey Thornton MD Signed By: Katey Thornton MD Signed Date/Time: 09/07/20 1527 Discharge Plan Discharge Patient Disposition: Home Clinical Impression: Lumbar back pain Compression fracture of lumbar spine, non-traumatic Qualifiers: Encounter type: subsequent encounter Lumbar vertebra fracture level: L3 Fracture healing: with routine healing Qualified Code(s): M48.56XD - Collapsed vertebra, not elsewhere classified, lumbar region, subsequent encounter for fracture with routine healing Fall Qualifiers: Encounter type: initial encounter Qualified Code(s): W19.XXXA - Unspecified fall, initial encounter Thoracic back pain Qualifiers: Chronicity: acute Back pain laterality: midline Qualified Code(s): M54.6 - Pain in thoracic spine Condition: Stable Prescriptions: No Action (DME) LUMBAR CORSET See Rx Instructions .Route .MEDSUPPLY Qty: 1 RF: 0 Effexor XR 37.5 mg PO DAILY RF: 0 Advil 200 mg Tablet 200 - 400 mg PO Q6H PRN (Reason: Pain) RF: 0 Multi Vitamin 9 mg iron/15 mL Liquid 1 ml PO DAILY RF: 0 hydrocodone-acetaminophen 5-325 mg tablet 1 tab PO Q6H PRN (Reason: pain) Qty: 20 RF: 0 Discharge Orders: Discharge ED (Routine); Ordered 09/07/20 Ordered By: Margaret Sevilla Referrals: Jonathon Rosa MD [Primary Care Provider] - Discharge Diet: Usual diet Discharge Activity: Limit activity as instructed Patient Instructions: Vertebral Compression Fracture (ED), Chronic Back Pain (ED), Fall Prevention (ED) Activity Restrictions/Additional Instructions: continue to wear back brace as directed by Dr Joseph Follow up with Dr Joseph next week USE walker at all times to prevent falls Continue Tylenol/hydrocodone as needed for pain return to the ED for worsening back pain, leg weakness/numbness or other concerning symptoms Coding Level of Care Code ED Retail Helper for Jared Cervantes Exam Comprehensive
[2020-09-07 13:30] LABS: Basophils # 0.1 10^3/uL (0.0-0.1); Basophils % 0.8 %; Eosinophils # 0.1 10^3/uL (0.0-0.8); Eosinophils % 1.2 %; Hematocrit 34.6 % (37.0-47.0); Hemoglobin 11.4 g/dL (11.5-15.3); Lymphocytes # 0.8 10^3/uL (0.8-4.8); Lymphocytes % 12.7 %; Mean Corpuscular HGB Conc 32.9 g/dL (30.0-36.0); Mean Corpuscular Hemoglobin 31.3 pg (28.0-34.0); Mean Corpuscular Volume 95.1 fL (81-99); Mean Platelet Volume 8.9 fL (7.4-10.4); Monocytes # 0.5 10^3/uL (0.2-0.9); Monocytes % 8.3 %; Neutrophils # 4.53 10^3/uL (1.8-7.7); Neutrophils % 76.7 %; Nucleated Red Blood Cells % 0 %; Platelet Count 305 10^3/cmm (130-400); Red Blood Count 3.64 10^6/uL (4.1-5.3); Red Cell Distribution Width 14.5 % (12.1-15.1); White Blood Count 5.9 10^3/uL (4.0-10.0)
--- NOTE | 2020-09-07 13:44 | XRR_ITS ---
PROCEDURE INFORMATION: Exam: XR Chest, 1 View Exam date and time: 09/07/2020 2:04 PM Age: 85 years old Clinical indication: Injury or trauma; Fall; Blunt trauma (contusions or hematomas); Additional info: Syncope TECHNIQUE: Imaging protocol: XR of the chest Views: 1 view. COMPARISON: [facility] Chest 2 views 05/11/2017 12:59 PM FINDINGS: Lungs: Hyperexpanded lungs. No focal consolidation. Minimal opacity likely scarring in bilateral lung bases. Inferolateral right calcified granuloma. Pleural space: No significant visible pleural effusion. No pneumothorax. 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 Vasculature: Aortic calcification. Bones/joints: Bones are demineralized. No acute osseous finding evident. XR/XR chest 1V portable [id number] IMPRESSION: Stable chest.
[2020-09-07 13:50] LABS: Alkaline Phosphatase 170 IU/L (35-105); Anion Gap 13.3 (5-19); Aspartate Amino Transferase 19 U/L (0-32); Blood Urea Nitrogen 23 mg/dL (8-23); Calcium 10.4 mg/dL (8.5-10.5); Carbon Dioxide 27 mmol/L (22-29); Chloride 98 mmol/L (98-107); Globulin 3.3 g/dL (1.3-4.6); Glucose 132 mg/dL (65-115); Osmolality Calculated 284 mOsm/kg (285-295); Potassium 4.3 mmol/L (3.5-5.1); Sodium 134 mmol/L (136-145); Total Bilirubin 0.3 mg/dL (0.15-1.2); Total Protein 7.3 g/dL (6.6-8.7)
[2020-09-07 13:54] LABS: D Dimer 6.41 ug/mIFEU (0-0.59)
[2020-09-07 14:01] LABS: Alanine Aminotransferase 18 U/L (0-33)
[2020-09-07 14:48] LABS: Add Urine Microscopic? NO
[2020-09-07 14:49] VITALS: BP 130/52; BP 134/75; BP 149/70; PULSE 60; PULSE 62; PULSE 64
[2020-09-07 14:57] LABS: Bilirubin Urine Neg (Negative); Blood Urine Neg (Negative); Glucose Urine UA Norm (Normal); Ketones Urine Negative (Negative); Leukocyte Esterase Urine Negative (Negative); Nitrate Urine Negative (Negative); Protein Urine Neg (Negative); Specific Gravity, Urine 1.025 (1.005-1.030); Urine Appearance Clear (CLEAR); Urine Color Yellow (Yellow); Urobilinogen Urine Norm (Negative); pH Urine 5 (5-7)
[2020-09-07 16:32] LABS: Troponin T (5th) Once 8 ng/L (0-10)
[2020-09-07] MEDS: acetaminophen 325 mg Tablet 650 MG PO (17:23)
== END 2020-09-07 17:27 | disposition home or self-care (01) ==
PROVIDERS: Emergency Provider Nurse Practitioner Family; PCP Family Medicine
DX: M48.56XA Collapsed vertebra, not elsewhere classified, lumbar region, initial encounter for fracture (principal); W19.XXXA Unspecified fall, initial encounter
CPT/HCPCS: 12345; 70450; 71045; 72072; 72100; 80053; 81003; 84484; 85025; 85378; 93005; 99282; 99284

== ENCOUNTER 2021-06-17 11:14 | Outpatient (CLI) | payer MEDICARE, OTHER, SELFPAY ==
[2021-06-17 11:30] VITALS: BP 142/84; PULSE 59; RESP 16; TEMP 36.1; O2SAT 97
[2021-06-17] MEDS: denosumab 60 mg SDV SUBCUT (11:55)
[2021-06-17 12:01] VITALS: BP 137/80; PULSE 59; RESP 16; TEMP 36.6; O2SAT 98
== END 2021-06-17 11:15 | disposition home or self-care (01) ==
LOC: ONCMED 11:21
PROVIDERS: PCP Family Medicine; Visit Provider Family Medicine
DX: M81.0 Age-related osteoporosis without current pathological fracture (principal)
CPT/HCPCS: 96372; J0897

== ENCOUNTER 2021-12-18 10:10 | Outpatient (CLI) | payer MEDICARE, OTHER, SELFPAY ==
[2021-12-18 10:34] VITALS: BP 109/74; PULSE 90; RESP 18; TEMP 36.2; O2SAT 98
[2021-12-18] MEDS: denosumab 60 mg SDV SUBCUT (10:37)
[2021-12-18 10:43] VITALS: BP 128/83; PULSE 62; RESP 18; TEMP 36.6; O2SAT 96
== END 2021-12-18 10:11 | disposition home or self-care (01) ==
LOC: ONCMED 10:15
PROVIDERS: PCP Family Medicine; Referring Provider Family Medicine; Visit Provider Family Medicine
DX: M81.0 Age-related osteoporosis without current pathological fracture (principal)
CPT/HCPCS: 96372; J0897

== ENCOUNTER 2022-02-12 13:44 | Outpatient (CLI) | payer MEDICARE, OTHER, SELFPAY ==
--- NOTE | 2022-02-12 13:53 | MM_ITS ---
WS: [id number] BILATERAL 3D TOMOSYNTHESIS DIGITAL SCREENING MAMMOGRAPHY WITH CAD CLINICAL INFORMATION: SCREENING Z12.31 HISTORY: Screening mammogram. No current complaints. COMPARISON: TECHNIQUE: Bilateral CC and MLO views. FINDINGS: The breasts are composed of heterogeneous fibroglandular density tissue, which can limit the detectio n of small underlying mass lesions. Punctate and lucent centered calcifications. Dystrophic calcifica tions LEFT breast. Vascular calcification. No suspicious mass, asymmetry, calcifications, or architec tural distortion. No evidence of malignancy. MM/[place] [id number] IMPRESSION: BI-RADS: 2-Benign FOLLOW UP: 1 Year Follow-up Recommend return to annual screening mammography.
== END 2022-02-12 13:45 | disposition home or self-care (01) ==
LOC: RAD 13:46
PROVIDERS: PCP Family Medicine; Visit Provider Family Medicine
DX: Z12.31 Encounter for screening mammogram for malignant neoplasm of breast (principal)
CPT/HCPCS: 77063; 77067

== ENCOUNTER 2022-06-23 10:05 | Outpatient (CLI) | payer MEDICARE, OTHER, SELFPAY ==
[2022-06-23 10:29] VITALS: BP 143/81; PULSE 62; RESP 16; TEMP 36.4; O2SAT 97
[2022-06-23] MEDS: denosumab 60 mg SDV SUBCUT (10:45)
[2022-06-23 10:47] VITALS: BP 146/89; PULSE 57; RESP 16; TEMP 36.7; O2SAT 97
== END 2022-06-23 10:06 | disposition home or self-care (01) ==
PROVIDERS: PCP Family Medicine; Visit Provider Family Medicine
DX: M81.0 Age-related osteoporosis without current pathological fracture (principal)
CPT/HCPCS: 96372; J0897

== ENCOUNTER 2022-07-07 12:51 | Outpatient (CLI) | payer MEDICARE, OTHER, SELFPAY ==
--- NOTE | 2022-07-07 | XR_ITS ---
WS: [id number] DEXA (DUAL ENERGY X-RAY ABSORPTIOMETRY) Bone mineral density was performed using a [employer] machine. HISTORY: OSTEOPOROSIS M81.0 COMPARISON: 01/07/2018 Lumbar spine BMD (L1-L4): 0.726 g/cm2 T score: -3.8 Z score: -1.2 Total hip BMD: Left: 0.550 g/cm2. T score: -3.6 Z score: -0.9 Right: 0.631 g/cm2. T score: -3.0 Z score: -0.2 10 year probability of a major osteoporotic fracture is 56.9%. Compared to the prior study from 01/07/2018. Lumbar spine bone mineral density has increased by 4.6%. Bilateral hips bone mineral density has decreased by 10.6%. XR/XR DEXA axial skeleton* [id number] IMPRESSION: OSTEOPOROSIS based upon the WHO classification for females. Significant decrease in bone mineral density within the hips since the prior . Bone mineral density within the lumbar spine has significantly increased.
== END 2022-07-07 12:52 | disposition home or self-care (01) ==
LOC: RAD 12:51
PROVIDERS: PCP Family Medicine; Visit Provider Family Medicine
DX: M81.0 Age-related osteoporosis without current pathological fracture (principal)
CPT/HCPCS: 77080